=== PATIENT | female | born 1960 | race African-American/Black ===

== ENCOUNTER 2017-05-27 20:30 | Inpatient (IN) | payer MEDICARE, MEDICAID ==
[~2017-05-27] VITALS: Ht 165.1 cm; Wt 70.8 kg
[~2017-05-27 20:30] MED LIST: BENA40TA3; COMBIVENT; GABA800T97 PO; METF850T2 PO; ROSU10TA
[2017-05-27] MEDS ORDERED: SODIUM CHLORIDE 0.9% 1000ML BAG (SEPSIS BOLUS) IV ONE (21:15)
[2017-05-27 21:36] LABS: BG BASE EXCESS 1.6 mmol/L (-2.0-2.0); BG CARBOXYHEMOGLOBIN 3.3 % (0.5-1.5); BG DEOXYHEMOGLOBIN 3.4 % (0.0-5.0); BG FRACTION INSPIRED OXYGEN 28; BG HCO3 ACT 26.6 mmol/L (22.0-26.0); BG METHEMOGLOBIN 0.1 % (0.0-1.5); BG OXYGEN SATURATION 96.5 % (92.0-98.5); BG OXYHEMOGLOBIN 93.2 % (94.0-97.0); BG PH 7.409 (7.350-7.450); BG PO2 85.6 mmHg (75.0-100.0); BG SAMPLE SITE RIGHT BRACHIAL; BG TOTAL HEMOGLOBIN 14.3 g/dL (12.0-18.0); BG VENT MODE NASAL CANNULA
[2017-05-27 21:54] LABS: BASOPHILS % 0.5 % (0.0-2.0); EOSINOPHILS % 0.8 % (0.0-5.0); HEMATOCRIT. 40.2 % (36.0-48.0); HEMOGLOBIN. 13.4 g/dL (12.0-16.0); LYMPHOCYTES % 22.1 % (20.0-50.0); MEAN CORPUSCULAR HEMOGLOBIN 28.4 pg (28.0-32.0); MEAN CORPUSCULAR VOLUME 84.8 fL (81.0-99.0); MEAN PLATELET VOLUME 11.2 fl (7.4-10.4); MONOCYTES % 8.2 % (2.0-8.0); NEUTROPHILS % 68.4 % (40.0-76.0); PLATELET 230 x1000/uL (130-400); RED BLOOD CELL COUNT 4.74 mill/uL (4.2-5.4); RED CELL DISTRIBUTION WIDTH 13.3 % (11.6-14.6)
[2017-05-27 21:55] LABS: CHLORIDE 100 mEq/L (98-107)
[2017-05-27 21:59] LABS: PARTIAL THROMBOPLASTIN TIME 25.2 sec (23.4-31.0); PROTHROMBIN TIME 10.8 sec (9.4-11.6)
[2017-05-27 22:03] LABS: AMMONIA < 25 uMol/L (<32)
[2017-05-27 22:05] LABS: BETA HYDROXYBUTYRATE 0.1 mMol/L (0.0-0.3); CARBON DIOXIDE 29 mEq/L (21-32); ETHANOL BLOOD < 10 mg/dL
[2017-05-27 22:07] LABS: TROPONIN I < 0.02 ng/mL (0.00-0.04)
[2017-05-27] MEDS ORDERED: LORAZEPAM 2MG/ML CPJ IV ONE (22:15)
[2017-05-27] MEDS ORDERED: CLONIDINE 0.1MG TABLET PO PRN (23:45)
[2017-05-27] MEDS ORDERED: ACETAMINOPHEN 325MG TABLET PO PRN (23:45)
[2017-05-27] MEDS ORDERED: MAGNESIUM/ALUMINUM HYDROXIDE/SIMETHICONE 30ML UDC PO PRN (23:45)
[2017-05-27] MEDS ORDERED: IPRATROPIUM/ALBUTEROL 0.5-3(2.5)MG/3ML NEB INH PRN (23:45)
[2017-05-27] MEDS ORDERED: LEVOFLOXACIN 500MG PREMIX 100 ML IV ONE (23:45)
[2017-05-27] MEDS ORDERED: ONDANSETRON HCL 4MG/2ML VIAL IV PRN (23:45)
[2017-05-28] VITALS (7 sets, daily range): BP systolic 107–145; BP diastolic 64–86
[2017-05-28] MEDS ORDERED: PREG200C PO (03:00)
[2017-05-28] MEDS ORDERED: LANTUSUD SUBCUT (03:00)
[2017-05-28] MEDS ORDERED: HYDR-519 PO (03:00)
[2017-05-28] MEDS ORDERED: DEXTROSE 50% WATER 50ML SYRINGE IV PRN (03:15)
[2017-05-28] MEDS: HYDROCODONE/ACETAMINOPHEN 5/325MG TABLET PO PRN ×3 (05:52→20:47)
[2017-05-28 05:59] LABS: BASOPHILS % 0.7 % (0.0-2.0); EOSINOPHILS % 0.6 % (0.0-5.0); HEMATOCRIT. 35.9 % (36.0-48.0); LYMPHOCYTES % 33.9 % (20.0-50.0); MEAN CORPUSCULAR HEMOGLOBIN 28.3 pg (28.0-32.0); MONOCYTES % 6.9 % (2.0-8.0); NEUTROPHILS % 57.9 % (40.0-76.0); PLATELET 174 x1000/uL (130-400); RED BLOOD CELL COUNT 4.22 mill/uL (4.2-5.4); RED CELL DISTRIBUTION WIDTH 13.4 % (11.6-14.6)
[2017-05-28 06:58] LABS: CREATINE KINASE 55 IU/L (26-192); CREATINE KINASE MB FRACTION 1.1 ng/mL (0.5-3.6); HDL CHOLESTEROL 23 mg/dL (40-59); LDL CHOLESTEROL 50 mg/dL (5-100); TROPONIN I < 0.02 ng/mL (0.00-0.04)
[2017-05-28] MEDS: PANTOPRAZOLE 40MG DR TABLET PO SCH (06:59)
[2017-05-28] MEDS: BLOOD SUGAR DIAGNOSTIC STRIP TEST SCH ×4 (07:03→20:46)
[2017-05-28] MEDS: INSULIN LISPRO 100 UNITS/ML SUBCUT SCH ×4 (07:50→20:48)
[2017-05-28] MEDS ORDERED: ASPI-1159 PO (09:45)
[2017-05-28] MEDS ORDERED: METF10002 PO (09:45)
[2017-05-28] MEDS ORDERED: OMEP40CA34 PO (09:45)
[2017-05-28] MEDS ORDERED: INSU100V3 SUBCUT (09:47)
[2017-05-28] MEDS ORDERED: LORAZEPAM 2MG/ML CPJ IV PRN (11:45)
[2017-05-28] MEDS ORDERED: PNEUMOCOCCAL 23-VAL P-SAC VAC 0.5 ML IM ONE (12:00)
[2017-05-28] MEDS ORDERED: IPRATROPIUM/ALBUTEROL 0.5-3(2.5)MG/3ML NEB HHN PRN (12:45)
[2017-05-28] MEDS: ENOXAPARIN 40MG/0.4ML SYR SUBCUT SCH (12:50)
[2017-05-28] MEDS ORDERED: PREGABALIN 75MG CAPSULE PO SCH ×2 (13:00→21:00)
[2017-05-28] MEDS ORDERED: MAGNESIUM 1 G PREMIX 100 ML IV NR (13:30)
[2017-05-28] MEDS: PREGABALIN 50 MG CAPSULE PO SCH ×3 (13:55→20:46)
[2017-05-28] MEDS: ALLOPURINOL 100 MG TABLET PO SCH (13:55)
[2017-05-28] MEDS ORDERED: PREGABALIN 50 MG CAPSULE PO SCH (14:00)
[2017-05-28] MEDS ORDERED: GABAPENTIN 100MG CAPSULE PO SCH (14:00)
[2017-05-28 15:21] LABS: CREATINE KINASE 57 IU/L (26-192); TROPONIN I < 0.02 ng/mL (0.00-0.04)
[2017-05-28] MEDS: NICOTINE 21MG PATCH TD SCH (17:32)
[2017-05-29] VITALS (7 sets, daily range): BP systolic 129–153; BP diastolic 67–95
[2017-05-29] MEDS ORDERED: LEVOFLOXACIN 500MG PREMIX 100 ML IV SCH
[2017-05-29] MEDS: HYDROCODONE/ACETAMINOPHEN 5/325MG TABLET PO PRN ×5 (01:00→21:47)
[2017-05-29] MEDS: PREGABALIN 50 MG CAPSULE PO SCH ×3 (06:37→21:46)
[2017-05-29] MEDS: PANTOPRAZOLE 40MG DR TABLET PO SCH (06:37)
[2017-05-29] MEDS: BLOOD SUGAR DIAGNOSTIC STRIP TEST SCH ×4 (06:44→21:46)
[2017-05-29] MEDS ORDERED: LORAZEPAM 2MG/ML CPJ IV PRN (07:04)
[2017-05-29] MEDS: INSULIN LISPRO 100 UNITS/ML SUBCUT SCH ×4 (09:20→21:47)
[2017-05-29] MEDS: ALLOPURINOL 100 MG TABLET PO SCH (09:21)
[2017-05-29] MEDS: ENOXAPARIN 40MG/0.4ML SYR SUBCUT SCH (09:22)
[2017-05-29] MEDS: NICOTINE 21MG PATCH TD SCH (09:22)
[2017-05-29] MEDS ORDERED: BISACODYL 10MG SUPP PR NR (14:15)
[2017-05-29 16:19] LABS: *AMPHETAMINES SCREEN URINE NEGATIVE (NEGATIVE); *BARBITURATES SCREEN URINE NEGATIVE (NEGATIVE); *BENZODIAZEPINES SCREEN URINE NEGATIVE (NEGATIVE); *COCAINE SCREEN URINE NEGATIVE (NEGATIVE); CANNABINOID URINE SCREEN NEGATIVE (NEGATIVE); METHADONE URINE SCREEN NEGATIVE (NEGATIVE); OPIATES URINE SCREEN PRESUMTIVE POSITIVE (NEGATIVE); PHENCYCLIDINE URINE SCREEN NEGATIVE (NEGATIVE)
[2017-05-29] MEDS: DOCUSATE SODIUM 100MG CAPSULE PO SCH (17:41)
[2017-05-30] VITALS: BP 165/90
[2017-05-30] MEDS: LEVOFLOXACIN 500MG PREMIX 100 ML IV SCH ×3 (00:04→23:55)
[2017-05-30] MEDS: HYDROCODONE/ACETAMINOPHEN 5/325MG TABLET PO PRN ×5 (00:44→23:15)
[2017-05-30 04:00] VITALS: BP 154/88
[2017-05-30] MEDS: PANTOPRAZOLE 40MG DR TABLET PO SCH (06:07)
[2017-05-30] MEDS: PREGABALIN 50 MG CAPSULE PO SCH ×3 (06:07→22:05)
[2017-05-30] MEDS: BLOOD SUGAR DIAGNOSTIC STRIP TEST SCH ×4 (06:38→21:00)
[2017-05-30 06:40] LABS: EOSINOPHILS % 1.8 % (0.0-5.0); HEMATOCRIT. 38.1 % (36.0-48.0); HEMOGLOBIN. 12.8 g/dL (12.0-16.0); LYMPHOCYTES % 38.6 % (20.0-50.0); MEAN CORPUSCULAR HEMOGLOBIN 28.6 pg (28.0-32.0); MONOCYTES % 7.8 % (2.0-8.0); NEUTROPHILS % 50.8 % (40.0-76.0); PLATELET 173 x1000/uL (130-400); RED BLOOD CELL COUNT 4.48 mill/uL (4.2-5.4); RED CELL DISTRIBUTION WIDTH 13.2 % (11.6-14.6)
[2017-05-30] MEDS ORDERED: LORAZEPAM 2MG/ML CPJ IV PRN (06:42)
[2017-05-30 08:00] VITALS: BP 131/92
[2017-05-30 08:32] LABS: CARBON DIOXIDE 25 mEq/L (21-32); CHLORIDE 101 mEq/L (98-107)
[2017-05-30] MEDS: NICOTINE 21MG PATCH TD SCH (09:45)
[2017-05-30] MEDS: INSULIN LISPRO 100 UNITS/ML SUBCUT SCH ×4 (09:49→22:24)
[2017-05-30] MEDS: DOCUSATE SODIUM 100MG CAPSULE PO SCH ×2 (09:50→18:44)
[2017-05-30] MEDS: ALLOPURINOL 100 MG TABLET PO SCH (09:50)
[2017-05-30] MEDS: ENOXAPARIN 40MG/0.4ML SYR SUBCUT SCH (09:51)
[2017-05-30 12:00] VITALS: BP 147/92
[2017-05-30] MEDS ORDERED: SORBITOL 70% SOLN 30ML PO PRN (13:00)
[2017-05-30 16:00] VITALS: BP 136/84
[2017-05-30] MEDS: METFORMIN HCL 500MG TABLET PO SCH (18:46)
[2017-05-30 20:00] VITALS: BP 117/72
[2017-05-30] MEDS ORDERED: INSULIN DETEMIR UD 100 UNITS/ML SYR SUBCUT SCH (22:00)
[2017-05-31] VITALS: BP 122/73
[2017-05-31] MEDS: HYDROCODONE/ACETAMINOPHEN 5/325MG TABLET PO PRN (03:31)
[2017-05-31 04:00] VITALS: BP 112/69
[2017-05-31] MEDS ORDERED: LORAZEPAM 2MG/ML CPJ IV PRN (05:00)
[2017-05-31] MEDS: PREGABALIN 50 MG CAPSULE PO SCH (06:00)
[2017-05-31] MEDS: PANTOPRAZOLE 40MG DR TABLET PO SCH (06:38)
[2017-05-31] MEDS: BLOOD SUGAR DIAGNOSTIC STRIP TEST SCH (06:40)
[2017-05-31] MEDS: METFORMIN HCL 500MG TABLET PO SCH (08:37)
[2017-05-31] MEDS: DOCUSATE SODIUM 100MG CAPSULE PO SCH (08:37)
[2017-05-31] MEDS: ENOXAPARIN 40MG/0.4ML SYR SUBCUT SCH (08:38)
[2017-05-31] MEDS: INSULIN LISPRO 100 UNITS/ML SUBCUT SCH (08:46)
[2017-05-31] MEDS: ALLOPURINOL 100 MG TABLET PO SCH (08:48)
[2017-05-31 09:08] VITALS: BP 127/77
[2017-06-01] MEDS ORDERED: LEVOFLOXACIN 500MG TABLET PO SCH (11:00)
== END 2017-05-31 09:45 | disposition home or self-care (01) | DRG 193 ==
LOC: ER 22:03 → 6WST 23:21 → EDBEDREQ 23:23 → ENRESERV 23:28 → 6WST 05-28 03:17
PROVIDERS: ADMIT Internal Medicine; ATTEND Internal Medicine
DX: J18.9 Pneumonia, unspecified organism (principal); J96.00 Acute respiratory failure, unspecified whether with hypoxia or hypercapnia; R65.11 Systemic inflammatory response syndrome (SIRS) of non-infectious origin with acute organ dysfunction; E11.9 Type 2 diabetes mellitus without complications; I10 Essential (primary) hypertension; M10.9 Gout, unspecified; J45.909 Unspecified asthma, uncomplicated; K59.00 Constipation, unspecified; S91.101A Unspecified open wound of right great toe without damage to nail, initial encounter; M06.9 Rheumatoid arthritis, unspecified; F17.210 Nicotine dependence, cigarettes, uncomplicated; Z79.82 Long term (current) use of aspirin; Z79.84 Long term (current) use of oral hypoglycemic drugs; Z79.899 Other long term (current) drug therapy; Z88.0 Allergy status to penicillin; Z88.6 Allergy status to analgesic agent; Z82.3 Family history of stroke; Z82.49 Family history of ischemic heart disease and other diseases of the circulatory system; Y93.89 Activity, other specified; Y92.89 Other specified places as the place of occurrence of the external cause; Y99.8 Other external cause status; Z71.6 Tobacco abuse counseling
CPT/HCPCS: 36415; 36600; 70450; 71010; 80048; 80053; 80061; 80305; 82010; 82140; 82270; 82375; 82550; 82553; 82805; 82962; 83605; 83690; 83735; 83880; 84443; 84484; 84550; 85025; 85379; 85610; 85730; 86850; 86900; 87015; 87040; 87045; 87086; 87427; 87449; 89055; 93005; 93306; 93880; 96361; 96365; 96375; 99291; G0482; J1650; J1815; J1956; J2060; J3475; J7030; J7040

== ENCOUNTER 2019-11-23 11:32 | Inpatient (IN) | payer BC, MEDICAID ==
[~2019-11-23] VITALS: Ht 165.1 cm; Wt 81.9 kg
[~2019-11-23 11:32] MED LIST changes: +ASPI-1497 PO; -BENA40TA3; +BENA40TA9; -COMBIVENT; +CRES10; -GABA800T97 PO; +HYDR-519 PO; +INSU100V3 SUBCUT; +LANTUSUD SUBCUT; +METF-416 PO; -METF850T2 PO; +OMEP40CA12 PO; +PREG200C PO; -ROSU10TA
[2019-11-23] MEDS ORDERED: KETOROLAC 30MG/ML VIAL IV STA (11:41)
[2019-11-23] MEDS ORDERED: ONDANSETRON HCL 4MG/2ML INJ IV STA (11:41)
[2019-11-23 12:17] LABS: BASOPHILS % 0.4 % (0.0-2.0); HEMATOCRIT. 37.8 % (36.0-48.0); HEMOGLOBIN. 12.8 g/dL (12.0-16.0); MEAN CORPUSCULAR HEMOGLOBIN 28.5 pg (28.0-32.0); MEAN CORPUSCULAR VOLUME 83.9 fL (81.0-99.0); MEAN PLATELET VOLUME 9.8 fl (7.4-10.4); MONOCYTES % 8.8 % (2.0-8.0); NEUTROPHILS % 60.8 % (40.0-76.0); PLATELET 297 x1000/uL (130-400); RED CELL DISTRIBUTION WIDTH 14.1 % (11.6-14.6)
[2019-11-23 12:20] LABS: CHLORIDE 101 mEq/L (98-107)
[2019-11-23 12:22] LABS: PROTHROMBIN TIME 10.7 sec (9.6-11.0)
[2019-11-23] MEDS ORDERED: KETOROLAC 30MG/ML VIAL IV ONE (13:30)
[2019-11-23] MEDS ORDERED: ONDANSETRON HCL 4MG/2ML INJ IV ONE (13:30)
[2019-11-23] MEDS ORDERED: MAGNESIUM/ALUMINUM HYDROXIDE/SIMETHICONE 30ML UDC PO PRN (14:30)
[2019-11-23] MEDS ORDERED: TRAMADOL 50MG TABLET PO PRN (14:30)
[2019-11-23] MEDS ORDERED: GUAIFENESIN 200MG/10ML SUGAR FREE UDC PO PRN (14:30)
[2019-11-23] MEDS ORDERED: DOCUSATE SODIUM 100MG CAPSULE PO PRN (14:30)
[2019-11-23] MEDS ORDERED: DEXTROSE 50% WATER 50ML SYRINGE IV PRN (14:30)
[2019-11-23] MEDS ORDERED: NITROGLYCERIN 0.4MG TABLET SL SL PRN (14:30)
[2019-11-23] MEDS ORDERED: ENOXAPARIN 40MG/0.4ML SYR SUBCUT SCH (14:30)
[2019-11-23] MEDS ORDERED: IPRATROPIUM/ALBUTEROL 0.5-3(2.5)MG/3ML NEB ORI PRN (14:30)
[2019-11-23] MEDS ORDERED: ACETAMINOPHEN 325MG TABLET PO PRN ×2 (14:30)
[2019-11-23] MEDS: AMLODIPINE 10MG TABLET PO SCH (14:39)
[2019-11-23] MEDS: ENOXAPARIN 30MG/0.3ML SYR SUBCUT SCH (14:51)
[2019-11-23] MEDS: KETOROLAC 15MG/ML VIAL IV PRN ×2 (15:33→21:57)
[2019-11-23] MEDS: ONDANSETRON HCL 4MG/2ML INJ IV PRN (15:38)
[2019-11-23] MEDS: BLOOD SUGAR DIAGNOSTIC STRIP TEST SCH ×2 (17:38→21:07)
[2019-11-23] MEDS: METOCLOPRAMIDE 10MG/10 ML UDC PO SCH (17:38)
[2019-11-23] MEDS: SUCRALFATE 1 G/10 ML UDC PO SCH ×2 (17:38→21:00)
[2019-11-23 17:53] VITALS: BP 151/99
[2019-11-23] MEDS: INSULIN LISPRO 100 UNITS/ML SUBCUT SCH ×3 (18:11→21:00)
[2019-11-23 20:00] VITALS: BP 166/96
[2019-11-23] MEDS ORDERED: ZOLPIDEM TARTRATE 5MG TABLET PO PRN (21:00)
[2019-11-23] MEDS: ASCORBIC ACID 500 MG TABLET PO SCH (21:06)
[2019-11-23] MEDS: LISINOPRIL 20MG TABLET PO SCH (21:06)
[2019-11-23] MEDS: INSULIN GLARGINE UD 100 UNITS/ML SYR SUBCUT SCH (21:15)
[2019-11-23] MEDS: NITROGLYCERIN OINT 1GM/INCH UDPKT TD SCH (21:58)
[2019-11-24] VITALS: BP 169/94
[2019-11-24] MEDS: CLONIDINE 0.1MG TABLET PO PRN (01:07)
[2019-11-24] MEDS: ENOXAPARIN 30MG/0.3ML SYR SUBCUT SCH ×2 (03:55→15:00)
[2019-11-24] MEDS: KETOROLAC 15MG/ML VIAL IV PRN ×3 (03:56→16:54)
[2019-11-24 04:00] VITALS: BP 172/96
[2019-11-24] MEDS: NITROGLYCERIN OINT 1GM/INCH UDPKT TD SCH ×3 (05:11→21:11)
[2019-11-24] MEDS: METOCLOPRAMIDE 10MG/10 ML UDC PO SCH ×3 (06:38→16:36)
[2019-11-24] MEDS: INSULIN LISPRO 100 UNITS/ML SUBCUT SCH ×7 (06:45→21:00)
[2019-11-24] MEDS: BLOOD SUGAR DIAGNOSTIC STRIP TEST SCH ×4 (06:45→21:11)
[2019-11-24] MEDS: SUCRALFATE 1 G/10 ML UDC PO SCH ×4 (07:01→21:10)
[2019-11-24 08:00] VITALS: BP 150/96
[2019-11-24] MEDS: ASCORBIC ACID 500 MG TABLET PO SCH ×2 (10:09→21:10)
[2019-11-24] MEDS: AMLODIPINE 10MG TABLET PO SCH (10:09)
[2019-11-24] MEDS: LISINOPRIL 20MG TABLET PO SCH ×2 (10:09→21:11)
[2019-11-24] MEDS: PANTOPRAZOLE SODIUM 40 MG/VIAL IV SCH (10:09)
[2019-11-24] MEDS: ONDANSETRON HCL 4MG/2ML INJ IV PRN (10:10)
[2019-11-24] MEDS: INSULIN GLARGINE UD 100 UNITS/ML SYR SUBCUT SCH (11:54)
[2019-11-24 12:00] VITALS: BP 147/88
[2019-11-24 16:00] VITALS: BP 105/62
[2019-11-24 20:00] VITALS: BP 157/84
[2019-11-24] MEDS ORDERED: INSULIN GLARGINE UD 100 UNITS/ML SYR SUBCUT SCH (23:30)
[2019-11-25] VITALS: BP 142/90
[2019-11-25] MEDS: KETOROLAC 15MG/ML VIAL IV PRN ×4 (00:01→18:15)
[2019-11-25 04:00] VITALS: BP 149/70
[2019-11-25] MEDS: NITROGLYCERIN OINT 1GM/INCH UDPKT TD SCH ×3 (06:17→21:14)
[2019-11-25] MEDS: BLOOD SUGAR DIAGNOSTIC STRIP TEST SCH ×4 (06:21→21:00)
[2019-11-25] MEDS: SUCRALFATE 1 G/10 ML UDC PO SCH ×4 (06:21→21:13)
[2019-11-25] MEDS: METOCLOPRAMIDE 10MG/10 ML UDC PO SCH ×3 (06:21→18:20)
[2019-11-25] MEDS: INSULIN LISPRO 100 UNITS/ML SUBCUT SCH ×7 (06:22→21:00)
[2019-11-25 08:00] VITALS: BP 140/78
[2019-11-25] MEDS: AMLODIPINE 10MG TABLET PO SCH (08:59)
[2019-11-25] MEDS: ASCORBIC ACID 500 MG TABLET PO SCH ×2 (09:00→21:13)
[2019-11-25] MEDS: ENOXAPARIN 40MG/0.4ML SYR SUBCUT SCH (09:00)
[2019-11-25] MEDS: PANTOPRAZOLE SODIUM 40 MG/VIAL IV SCH (09:00)
[2019-11-25] MEDS: LISINOPRIL 20MG TABLET PO SCH ×2 (09:00→21:15)
[2019-11-25] MEDS: INSULIN GLARGINE UD 100 UNITS/ML SYR SUBCUT SCH ×2 (11:27→23:15)
[2019-11-25] MEDS: IPRATROPIUM/ALBUTEROL 0.5-3(2.5)MG/3ML NEB HHN PRN (11:31)
[2019-11-25 12:00] VITALS: BP 180/101
[2019-11-25] MEDS: CLONIDINE 0.1MG TABLET PO PRN (12:15)
[2019-11-25 16:00] VITALS: BP 134/84
[2019-11-25 20:00] VITALS: BP 147/82
[2019-11-26] VITALS: BP 151/81
[2019-11-26] MEDS: KETOROLAC 15MG/ML VIAL IV PRN ×4 (01:19→21:15)
[2019-11-26 04:00] VITALS: BP 156/78
[2019-11-26] MEDS: BLOOD SUGAR DIAGNOSTIC STRIP TEST SCH ×4 (05:40→21:14)
[2019-11-26] MEDS: INSULIN LISPRO 100 UNITS/ML SUBCUT SCH ×7 (07:20→21:00)
[2019-11-26 08:00] VITALS: BP 142/83
[2019-11-26] MEDS: LISINOPRIL 20MG TABLET PO SCH ×2 (09:00→21:14)
[2019-11-26] MEDS: ASCORBIC ACID 500 MG TABLET PO SCH ×2 (09:00→21:14)
[2019-11-26] MEDS: PANTOPRAZOLE SODIUM 40 MG/VIAL IV SCH (09:01)
[2019-11-26] MEDS: AMLODIPINE 10MG TABLET PO SCH (09:01)
[2019-11-26] MEDS: SUCRALFATE 1 G/10 ML UDC PO SCH ×4 (09:01→21:14)
[2019-11-26] MEDS: ENOXAPARIN 40MG/0.4ML SYR SUBCUT SCH (09:01)
[2019-11-26] MEDS: METOCLOPRAMIDE 10MG/10 ML UDC PO SCH ×3 (09:01→16:42)
[2019-11-26] MEDS: INSULIN GLARGINE UD 100 UNITS/ML SYR SUBCUT SCH ×2 (09:10→21:24)
[2019-11-26 12:00] VITALS: BP 151/65
[2019-11-26 16:00] VITALS: BP 162/102
[2019-11-26] MEDS: CLONIDINE 0.1MG TABLET PO PRN (16:43)
[2019-11-26 20:00] VITALS: BP 138/73
[2019-11-26] MEDS: ONDANSETRON HCL 4MG/2ML INJ IV PRN (21:21)
[2019-11-26] MEDS: IPRATROPIUM/ALBUTEROL 0.5-3(2.5)MG/3ML NEB HHN PRN (22:09)
[2019-11-27] VITALS: BP 139/87
[2019-11-27] MEDS: KETOROLAC 15MG/ML VIAL IV PRN (03:25)
[2019-11-27 04:00] VITALS: BP 131/82
[2019-11-27] MEDS: BLOOD SUGAR DIAGNOSTIC STRIP TEST SCH (06:29)
[2019-11-27] MEDS: SUCRALFATE 1 G/10 ML UDC PO SCH (06:29)
[2019-11-27] MEDS: METOCLOPRAMIDE 10MG/10 ML UDC PO SCH (06:29)
[2019-11-27] MEDS: INSULIN LISPRO 100 UNITS/ML SUBCUT SCH ×2 (07:20→07:40)
[2019-11-27] MEDS ORDERED: SUCR1TAB30 MT (07:46)
[2019-11-27 08:00] VITALS: BP 160/86
[2019-11-27] MEDS: PANTOPRAZOLE SODIUM 40 MG/VIAL IV SCH (08:40)
[2019-11-27] MEDS: ASCORBIC ACID 500 MG TABLET PO SCH (08:40)
[2019-11-27] MEDS: LISINOPRIL 20MG TABLET PO SCH (08:40)
[2019-11-27] MEDS: AMLODIPINE 10MG TABLET PO SCH (08:40)
[2019-11-27] MEDS: ENOXAPARIN 40MG/0.4ML SYR SUBCUT SCH (08:41)
[2019-11-27] MEDS: CLONIDINE 0.1MG TABLET PO PRN (09:25)
[2019-11-27 09:52] VITALS: BP 145/86
== END 2019-11-27 10:20 | disposition home or self-care (01) | DRG 73 ==
LOC: ER 11:32 → 6EST 14:13 → SUPCPDRO 14:18 → ENRESERV 15:31
PROVIDERS: ADMIT Internal Medicine; ATTEND Internal Medicine
DX: E11.43 Type 2 diabetes mellitus with diabetic autonomic (poly)neuropathy (principal); E43 Unspecified severe protein-calorie malnutrition; E87.1 Hypo-osmolality and hyponatremia; K31.84 Gastroparesis; K29.70 Gastritis, unspecified, without bleeding; E11.65 Type 2 diabetes mellitus with hyperglycemia; E66.9 Obesity, unspecified; E78.00 Pure hypercholesterolemia, unspecified; E83.51 Hypocalcemia; I10 Essential (primary) hypertension; Z79.899 Other long term (current) drug therapy; Z68.30 Body mass index [BMI] 30.0-30.9, adult; Z88.0 Allergy status to penicillin; Z88.5 Allergy status to narcotic agent; Z88.8 Allergy status to other drugs, medicaments and biological substances; Z79.4 Long term (current) use of insulin; Z79.1 Long term (current) use of non-steroidal anti-inflammatories (NSAID)
CPT/HCPCS: 36415; 74176; 80053; 80061; 82962; 83036; 85025; 93005; 93970; 94640; 99285; C9113; J1650; J1815; J1885; J2405; J8597